=== PATIENT | male | born 2000 | race Caucasian/White ===

== ENCOUNTER 2022-11-15 16:26 | Emergency (ER) | payer OTHER, SELFPAY ==
[2022-11-15 16:29] VITALS: BP 141/84; PULSE 92; RESP 17; TEMP 36.9; O2SAT 97; BMI 22.1
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
[2022-11-15 17:50] VITALS: BP 137/84; PULSE 92; RESP 17; TEMP 36.9; O2SAT 97
== END 2022-11-15 18:40 | disposition home or self-care (01) ==
PROVIDERS: Emergency Provider Emergency Medicine
DX: S16.1XXA Strain of muscle, fascia and tendon at neck level, initial encounter (principal); S50.819A Abrasion of unspecified forearm, initial encounter; V89.2XXA Person injured in unspecified motor-vehicle accident, traffic, initial encounter
CPT/HCPCS: 99283